=== PATIENT | female | born 1985 | race Caucasian/White ===

== ENCOUNTER → 2021-01-23 10:01 | Outpatient (BNVA) | payer MEDICAID, SELFPAY | PROVIDERS: Visit Provider Obstetrics & Gynecology | DX: N93.9 Abnormal uterine and vaginal bleeding, unspecified (principal) | CPT/HCPCS: 84443; 87635 ==

== ENCOUNTER 2021-01-28 15:43 | Observation (INO) | payer MEDICAID, SELFPAY ==
[2021-01-26 11:19] LABS: Add Urine Microscopic? NO; Charge for UA Resulting for Rev
[2021-01-26 11:27] LABS: Bilirubin Urine Neg (Negative); Blood Urine Neg (Negative); Glucose Urine UA Norm (Normal); Ketones Urine Negative (Negative); Leukocyte Esterase Urine Negative (Negative); Nitrate Urine Negative (Negative); Protein Urine Neg (Negative); Urine Appearance Clear (CLEAR); Urine Color Yellow (Yellow); Urobilinogen Urine Norm (Negative); pH Urine 5 (5-7)
[2021-01-26 11:30] LABS: OR HCG Qualitative Urine Negative (Negative)
[2021-01-26 11:32] VITALS: BMI 27.2
[2021-01-26 11:44] LABS: Basophils % 0.5 %; Eosinophils # 0.2 10^3/uL (0.0-0.8); Eosinophils % 2.7 %; Hematocrit 40.6 % (37.0-47.0); Hemoglobin 13.5 g/dL (11.5-15.3); Lymphocytes # 2.6 10^3/uL (0.8-4.8); Lymphocytes % 40.5 %; Mean Corpuscular HGB Conc 33.3 g/dL (30.0-36.0); Mean Corpuscular Hemoglobin 29.3 pg (28.0-34.0); Mean Corpuscular Volume 88.1 fl (81-99); Mean Platelet Volume 10.5 fL (7.4-10.4); Monocytes # 0.4 10^3/uL (0.2-0.9); Monocytes % 6.7 %; Neutrophils # 3.11 10^3/uL (1.8-7.7); Neutrophils % 49.4 %; Nucleated Red Blood Cells % 0 %; Platelet Count 228 10^3/cmm (130-400); Red Blood Count 4.61 10^6/uL (4.1-5.3); Red Cell Distribution Width 12.8 % (12.1-15.1); White Blood Count 6.3 10^3/uL (4.0-10.0)
[2021-01-26 12:11] LABS: Alanine Aminotransferase 64 U/L (0-33); Albumin Level 4.1 g/dL (3.5-5.2); Alkaline Phosphatase 94 IU/L (35-105); Anion Gap 12.6 (5-19); Aspartate Amino Transferase 39 U/L (0-32); Blood Urea Nitrogen 6 mg/dL (6-20); Calcium 9.3 mg/dL (8.5-10.5); Carbon Dioxide 23 mmol/L (22-29); Chloride 106 mmol/L (98-107); Globulin 3.5 g/dL (1.3-4.6); Glomerular Filtration Rate 140.4 mL/min (90-130); Glucose 69 mg/dL (65-115); Osmolality Calculated 282 mOsm/kg (285-295); Potassium 3.6 mmol/L (3.5-5.1); Sodium 138 mmol/L (136-145); Total Bilirubin 0.5 mg/dL (0.15-1.2); Total Protein 7.6 g/dL (6.6-8.7)
--- NOTE | 2021-01-26 12:43 | P.ANESASSM_ITS ---
Pre-Anesthetic Assessment Pre-Anesthetic Assessment: Height/Weight: Height 1.78 m Weight 86.183 kg Proposed Procedure: Operation Date: 01/28/21 13:15 Proposed Procedures p Laparoscopic Assist Vaginal Hysterectomy 92983 N93.9(Not Applicable) - Octavio Anderson MD Was Beta Sanchez taken within 24 hours: N/A Was Clonidine taken within 24 hours: N/A Social: Social History: Tobacco and No alcohol Exam: Pre-Anes Outpt Exam: alert, oriented x 3 and regular rate & rhythm Airway: Submandibular: WNL Cervical ROM: WNL MP: 2 Dentition: Chipped Pulmonary: Pulmonary: COPD Anesthetic Plan: ASA status: 2 Anesthesia: General Risk of > 500 ml blood loss (7ml/kg in children): No PFSH Anesthesia PFSH: Medical History (Updated 12/25/20 @ 15:15 by Octavio Anderson MD) Abnormal uterine bleeding (AUB) Surgical History (Updated 12/25/20 @ 15:14 by Octavio Anderson MD) History of appendectomy 2011 History of section 2014 History of cone biopsy of cervix 2016 History of tonsillectomy 1992 Family History (Updated 12/22/20 @ 13:04 by Alicia Nicholas LPN) Grandmother Diabetes maternal Grandfather Diabetes maernal Mother Thyroid disease Ovarian cancer Colon cancer Uterine cancer Denies family history of Clotting disorder Hyperlipidemia Breast cancer Bleeding disorder Hypertension Stroke Social History (Updated 12/22/20 @ 13:05 by Alicia Nicholas LPN) Smoking and tobacco status: current every day smoker cigarettes Packs smoked per day: 0.5 Alcohol intake: current Alcohol intake frequency: holidays/special occasions only Alcohol type: hard liquor Female Reproductive History: Date of last menstrual period: 01/08/21 Data Anesthesia CBC & Chem 7: 01/26/21 11:20 01/26/21 11:20 Other Labs: Laboratory Results - last 48 hr 01/26/21 01/26/21 01/26/21 11:10 11:10 11:20 WBC 6.3 RBC 4.61 Hgb 13.5 Hct 40.6 MCV 88.1 MCH 29.3 MCHC 33.3 RDW 12.8 Plt Count 228 MPV 10.5 H Neut % (Auto) 49.4 Lymph % (Auto) 40.5 [place] % (Auto) 6.7 Eos % (Auto) 2.7 Baso % (Auto) 0.5 Neut # (Auto) 3.11 Lymph # (Auto) 2.6 [place] # (Auto) 0.4 Eos # (Auto) 0.2 Baso # (Auto) 0.0 Nucleated RBC % (auto) 0 Nucleated RBCs # 0.0 Sodium Potassium Chloride Carbon Dioxide Anion Gap BUN Creatinine GFR Calculation Glucose Calculated Osmolality Calcium Total Bilirubin AST ALT Alkaline Phosphatase Total Protein Albumin Globulin Urine Color Yellow Urine Appearance Clear Urine pH 5 Ur Specific [place] 1.020 Urine Protein Neg Urine Glucose (UA) Norm Urine Ketones Negative Urine Blood Neg Urine Nitrate Negative Urine Bilirubin Neg Urine Urobilinogen Norm Ur Leukocyte Esterase Negative Urine HCG, Qual Negative Blood Type Rho(D) Type Antibody Screen 01/26/21 01/26/21 11:20 11:20 WBC RBC Hgb Hct MCV MCH MCHC RDW Plt Count MPV Neut % (Auto) Lymph % (Auto) [place] % (Auto) Eos % (Auto) Baso % (Auto) Neut # (Auto) Lymph # (Auto) [place] # (Auto) Eos # (Auto) Baso # (Auto) Nucleated RBC % (auto) Nucleated RBCs # Sodium 138 Potassium 3.6 Chloride 106 Carbon Dioxide 23 Anion Gap 12.6 BUN 6 Creatinine 0.5 GFR Calculation 140.4 H Glucose 69 Calculated Osmolality 282 L Calcium 9.3 Total Bilirubin 0.5 AST 39 H ALT 64 H Alkaline Phosphatase 94 Total Protein 7.6 Albumin 4.1 Globulin 3.5 Urine Color Urine Appearance Urine pH Ur Specific [place] Urine Protein Urine Glucose (UA) Urine Ketones Urine Blood Urine Nitrate Urine Bilirubin Urine Urobilinogen Ur Leukocyte Esterase Urine HCG, Qual Blood Type A Positive Rho(D) Type Positive Antibody Screen Negative Cardiac Studies: No Data to Display
[2021-01-28] VITALS (15 sets, daily range): BP systolic 106–134; BP diastolic 58–81; PULSE 50–77; RESP 12–22; TEMP 36.2–37.2; O2SAT 97–100
[2021-01-28] MEDS: scopolamine 1.5 Patch 1 PATCH TRANSDERMA (11:57)
[2021-01-28] MEDS: sodium chloride 0.9% 500 ML IV (12:15)
--- NOTE | 2021-01-28 13:29 | W.PM.OPSUD ---
Surgery/Procedure H&P Update DATE OF PROCEDURE: January 28, 2021 DATE H&P PERFORMED: 01/26/21 H&P UPDATE INFORMATION: I have reviewed H&P completed within last 30 days, I have examined patient prior to procedure and No changes to prior documentation PREOP DIAGNOSIS: Abnormal uterine bleeding unresponsive to medical management PLANNED PROCEDURE: Operation Date: 01/28/21 13:05 Proposed Procedures p Laparoscopic Assist Vaginal Hysterectomy 73507 N93.9(Not Applicable) - Octavio Anderson MD
[2021-01-28] MEDS: ceFOXitin 2,000 MG in sodium chloride 0.9% (plus) 50 ML 100 MG IV (13:48)
--- NOTE | 2021-01-28 15:43 | P.OP_ITS ---
Operative Report Date of procedure: January 28, 2021 Pre-op Diagnosis: Abnormal uterine bleeding unresponsive to medical management Post-op diagnosis: same Post-op Diagnosis: omental adhesions. Post-op Findings: Enlarged uterus, omental adhesions Procedure Done: Laparoscopic-assisted vaginal hysterectomy Specimens removed/disposition: Uterus, left and right fallopian tube Pathology: Uterus, left and right fallopian tube Surgeon: Octavio Anderson MD Anesthesia: General Estimated blood loss (mL): 250 IV fluids (mL): 700 Urine output (mL): 600 Complications: none Condition: stable Disposition: PACU Procedure: After informed consent, the patient was taken to the operating room where general anesthesia was administered. Pre-Procedure Time-Out verifying the correct patient identity, correct procedure verified with consent, correct site and side, correct patient position, availability of correct implants and any special equipment or requirements was performed and acknowledge by the OR team. She was placed in the dorsal lithotomy position and prepped and draped in sterile fashion. The patient was examined under anesthesia and found to have a normal uterus with normal adnexa. A Mayfield catheter was placed in the bladder. A weighted speculum was placed in the vagina, and the anterior lip of cervix was grasped with the single toothed tenaculum. A uterine manipulator was advanced into the endocervical. Tenaculum was removed after uterine manipulator was secured. The speculum was removed from the vagina. The attention was brought to abdomen after changing gloves. The base of the umbilicus was grasped with an Allis clamp and with 2 towel clamp bilaterally tenting up the umbilicus an intraumbilical incision was made with a scalpel. While tenting up on the abdomen, a Verres needle with sleeve was admitted into the intra-abdominal cavity. A saline drop test was performed and noted to be within normal limits. Pneumoperitoneum was attained with 4 liters of carbon dioxide. The Verres needle was removed. Then a 5 mm Optiview trocar and cannula were inserted under direct visualization without complications. Trocars were removed and the laparoscope was inserted and connected to the video camera light source. A 5 mm trocar and cannula were placed 3 cm above pubic bone at mid-line under direct visualization after infiltration of 2% lidocaine with epinephrine. Abdominal survey showed omental adhesions to the anterior abdominal wall. The pelvic contents were visualized and noted an enlarged irregular uterus, deep cul-de-sac, normal bi lateral fallopian tubes and ovaries, normal appendix, and both ureters were identified crossing the pelvic brim and pelvic sidewall. The left round ligament was clampped sealed/coagulated and transected using Voyant device. The left mesosalpinx ligament was clamped selaed/coagulated using LigaSure and then transected. The left broad ligament was opened down to the level of the uterine artery and vein. The right mesosalpinx ligamnet was clamped sealed/coagulated and transected using Voyant device. The right round ligament was clamped sealed/coagulated and transected using Voyant device, and the right broad ligament was opened down to the level of the right uterine artery and vein. Peritoneum of the lower uterine segment was entered using Voyant device, and the bladder was dissected off the lower uterine segment using blunt dissection. Careful inspection revealed complete hemostasis. A BookWalter vaginal retractor was placed in the vaginal to visualize the cervix. The cervix was grasped across the anterior lip with a single-toothed tenaculum and circumferentially infiltrated with 2% lidocaine with epinephrine at this time. The cervix was circumferentially excised with the scalpel. The vaginal mucosa was dissected superiorly with sharp dissection. The anterior peritoneal reflection was identified, and it was entered with Metzenbaum scissors. A posterior colpotomy was made through the cul-de-sac space. The posterior peritoneum was identified in similar fashion and Metzenbaum scissors were used to enter the cul-de-sac. At this time, the posterior retractor blade was placed, and advanced posteriorly into the cul-de-sac. At this time, the left and right uterosacral ligaments were isolated and ligated with 0 Vicryl. The Enseal device was then used in a serial fashion up through the cardinal ligaments bilaterally. Finally, the uterine arteries were cross-clamped, sealed,and cut, with the Enseal device. Enseal device was then used up through the broad ligaments superiorly and finally the uterus was rotated posteriorly. The uterus was excised and submitted for pathologic evaluation. The pedicles were doubly ligated bilaterally with 0 Vicryl and hemostasis noted to be achieved. No other abnormalities were noted in the pelvic cavity. At this time, instruments were removed from the patient's abdominopelvic cavity. Vaginal cuff closure and peritoneum were incorporated into one layer with 0 Vicryl suture in a continuous running interlocking fashion. Hemostasis was noted to be achieved. Mayfield catheter was seen yielding clear jillian urine. The patietn was given methyline blue IV. Then attention was again turned back to the abdomen and inspected the abdomen to ensure complete hemostasis. Then the omental adhesions to the anterior abdominal wall there lysed with the Voyant device. Once the entire abdomen was inspected and hemostasis was assure then the ports were then removed under direct visualization being sure to note hemostasis of the port sites on removal. The incisions were then closed with interrupted 3-O VIcryl sutures and Dermabond adhesive. The patient tolerated the procedure well and was taken to the recovery room in a stable condition. Sponge and needle counts were correct x3.
--- NOTE | 2021-01-28 15:59 | P.PCN_ITS ---
PACU note PACU note: VSS, Good respiratory effort, report to GELATIN PLANT SUPERVISOR Post-Anesthesia Exam: awake
--- NOTE | 2021-01-28 15:59 | PM.PACU ---
PACU note PACU note: VSS, Good respiratory effort, report to BURNER MACHINE OPERATOR Post-Anesthesia Exam: awake
--- NOTE | 2021-01-28 16:01 | ANE.PACU2 ---
Inpatient post-anesthesia follow up: Airway intact: Yes Vital signs: Temperature 98.6 F Pulse Rate 77 Respiratory Rate 16 Blood Pressure 124/81 Pulse Oximetry 98 Oxygen Delivery Me thod Room Air Oxygen Flow Rate Fraction of Inspir ed Oxygen Hydration adequate: Yes Nausea and vomiting: No Pain level: 3 Mental status: Baseline
[2021-01-28] MEDS: fentaNYL 50 mcg/mL INJ 2mL IVP ×2 (16:06→16:11)
[2021-01-28] MEDS: HYDROcodone-acetaminophen 5-325 mg Tablet PO ×2 (17:01→22:52)
[2021-01-28] MEDS: HYDROmorphone 1 mg/mL INJ 1 mL 0.5 MG IVP (17:10)
[2021-01-28] MEDS: dextrose 5%-lactated ringers 1,000 ML 125 ML IV (17:15)
[2021-01-28] MEDS: simethicone 80 mg Chew PO (19:29)
[2021-01-28] MEDS: HYDROmorphone 1 mg/mL INJ 1 mL IVP ×2 (19:29→23:36)
[2021-01-28] MEDS: ketorolac 30 mg/mL INJ IVP (22:52)
[2021-01-28] MEDS: zolpidem 5 mg Tablet PO (23:36)
[2021-01-29] MEDS: dextrose 5%-lactated ringers 1,000 ML 125 ML IV (01:37)
[2021-01-29 04:08] VITALS: RESP 16
[2021-01-29] MEDS: HYDROmorphone 1 mg/mL INJ 1 mL IVP (04:08)
[2021-01-29] MEDS: simethicone 80 mg Chew PO (04:08)
[2021-01-29 04:13] VITALS: BP 114/65; PULSE 80; RESP 16; O2SAT 97
--- NOTE | 2021-01-29 05:11 | PC.NURSE ---
This nurse has encouraged pt to move to chair or ambulate all shift. Pt has refused every time stating I am in too much pain to move. This nurse educated pt on benefits of moving around and possibility of passing gas which could help alleviate some of the pain. Pt still refused.
[2021-01-29 05:31] LABS: Hematocrit 33.6 % (37.0-47.0); Hemoglobin 11.4 g/dL (11.5-15.3); Mean Corpuscular HGB Conc 33.9 g/dL (30.0-36.0); Mean Corpuscular Hemoglobin 29.5 pg (28.0-34.0); Mean Corpuscular Volume 86.8 fl (81-99); Mean Platelet Volume 10.6 fL (7.4-10.4); Platelet Count 232 10^3/cmm (130-400); Red Blood Count 3.87 10^6/uL (4.1-5.3); Red Cell Distribution Width 12.5 % (12.1-15.1); White Blood Count 10.4 10^3/uL (4.0-10.0)
[2021-01-29] MEDS: ketorolac 30 mg/mL INJ IVP (07:17)
[2021-01-29] MEDS: HYDROcodone-acetaminophen 5-325 mg Tablet PO (07:18)
[2021-01-29] MEDS: docusate sodium 100 mg Capsule PO (07:19)
--- NOTE | 2021-01-29 08:48 | P.DS_ITS ---
Discharge Providers SCIENTIFIC INFORMATICS LEADER Date of Admission: 01/28/21 15:43 Date of Discharge: 01/29/21 Attending Provider at Admission: Octavio Anderson MD Attending Provider at Discharge: Octavio Anderson MD Diagnoses at Discharge Discharge Diagnosis (1) Abnormal uterine bleeding (AUB): Status: Acute (2) Status post laparoscopic assisted vaginal hysterectomy (LAVH): Status: Acute Reason for Visit Reason for Visit: lap assisted vaginal hysterectomy Hospital Course Hospital Course This is a well was admitted for planned laparoscopic-assisted vaginal hysterectomy. Omental abdominal adhesions were noted during abdominal pelvic survey. The laparoscopic-assisted vaginal hysterectomy was performed without c omplications. Lysis of adhesions were performed without complications. Overnight observation uneventful. Part of the diet well. Ambulating without difficulty. Patient expected to be 100% pain-free she was counseled. Physical Exam Narrative: EXAM NARRATIVE: GA: Alert and oriented ?3. HEENT: WNL. Heart: Regular rate and rhythm. Lungs: Clear to auscultation bilaterally. Abdomen: Bowel sounds present, nontender, minimal tenderness, incision clean and dry, no redness, pain or edema. SECURITY AND COMPLIANCE ANALYST: No bleeding. Extremities: No edema, no cyanosis, no calves pain. Urinary Catheter Management^: F: Cath Placed During This Visit: yes, but has since been removed by the nurse Reason for Continuing Indwelling Catheter: Decision to DC Catheter Urinary Catheter Date of Insertion: 01/28/21 Urinary Catheter Time of Insertion: 13:55 Date Urinary Catheter Removed: 01/29/21 Time Urinary Catheter Discontinued: 05:12 Discharge Data Data Completed and Pending: Pending at discharge Category Date Time Status ES surgery / GI i mages Routine Exams 01/28/21 06:54 Taken Pathology: Surgic al [PTH] Routine Pth 01/28/21 16:00 Ordered Labs from last 24 hours 01/29/21 05:10 WBC 10.4 H RBC 3.87 L Hgb 11.4 L Hct 33.6 L MCV 86.8 MCH 29.5 MCHC 33.9 RDW 12.5 Plt Count 232 MPV 10.6 H Vitals: Last Vital Signs Temp 98.9 F 01/28/21 18:20 Pulse 80 01/29/21 04:13 Resp 16 01/29/21 04:13 BP 114/65 01/29/21 04:13 Pulse Ox 97 01/29/21 04:13 Discharge Plan Discharge Patient Disposition: Home Condition: Stable Prescriptions: New ibuprofen 800 mg tablet 800 mg PO TID PRN (Reason: pain) Qty: 60 RF: 0 hydrocodone-acetaminophen 5-325 mg tablet 1 tab PO Q4H PRN (Reason: pain) Qty: 30 RF: 0 Iron (ferrous sulfate) 325 mg (65 mg iron) tablet 325 mg PO BID Qty: 30 RF: 0 Colace 100 mg capsule 100 mg PO BID Qty: 60 RF: 0 acetaminophen 325 mg capsule 325 mg PO Q4H PRN (Reason: fever or pain) Qty: 60 RF: 0 Continued No Known Home Medications RF: 0 Discharge Orders: Discharge Order (Routine); Ordered 01/29/21 Ordered By: Octavio Anderson Discharge Diet: Usual diet Discharge Activity: Increase activity as tolerated Patient Instructions: Laparoscopically Assisted Vaginal Hysterectomy (DC), OB Discharge Report, OB Laproscopic Surgery - [facility], OB Food/Drug Interaction Guide, Opioid Safety Activity Restrictions/Additional Instructions: 1. Please call [facility] on next working day to make your post-operative appointment in 2 weeks. 2. Please stay home until you come back to the clinic on first post-operative check up. 3. Please follow instructions on your medications CAREFULLY. 4. If you have abdominal incision, do not cover it unless dressing is necessary because of drainage. OK to shower, but avoid bath. Leave steri-strips until they fall off. If they are still on one week after surgery, you may remove them. 5. If you had vaginal surgery or vaginal repair, Dr. Anderson may instruct you to take SITZ bath. 6. Yellow, blood tinged odorous vaginal discharge is usually normal after hysterectomy or vaginal surgeries. 7. No sexual intercourse, tampons, or douches until you are completely released from the post-operative care. 8. Avoid constipation by eating right and maybe using some Metamucil or Milk of Magnesia. 9. All prescription refills are given during the working hours. Please do no wait till it runs out. Call the clinic at [phone] before your medication runs out. The clinic will get in touch with your doctor to prescribe medications if necessary. 10. Please remain within 40 mile radius from our hospital because emergencies do happen now and then during the post-operative period. 11. If you have stairs at home, take one step at a time slowly and minimize the number of trips. It helps to stay in one floor for the next few days. No lifting except what you can lift by one hand until you are released from the post-operative care. 12. Driving is discouraged until you are well healed. It may be 3-4 weeks before you feel strong enough to drive. You should be able to turn and look through the rear window without pain and you should be able to push the brake pedal very hard without pain before you drive. No fast rules, but SAFETY should be your primary concern. DO NOT drive if you are on sedating medications such as narcotics. 13. Call the clinic (during working hours) to make urgent appointment or go to the Emergency room, if any of the following occurs: i. Vaginal bleeding becomes heavy, more than a period. ii. Incision becomes red and sore, or drains pus. iii. Your temperature is over 100.4 or you have chill. iv. IV site becomes red and swollen (a little ``knot?? is usually OK) v. Persistent nausea and vomiting vi. Persistent constipation or diarrhea vii. Rash or allergic reaction to medications. Discharge Attestations SCIENTIFIC INFORMATICS LEADER Time Spent in Discharge Care*: greater than 30 min Coding Level of Care Code Acute Pension Examiner for nadya Hope Diagnoses Abnormal uterine bleeding (AUB) N93.9 Status post laparoscopic assisted vaginal hysterectomy (LAVH) Z90.710
[2021-01-29 10:35] VITALS: BP 119/75; PULSE 90; RESP 16; TEMP 36.4
--- NOTE | 2021-01-30 15:33 | PC.RESP ---
SMOKING CESSATION INFORMATION SENT TO PATIENT.
== END 2021-01-29 11:38 | disposition home or self-care (01) ==
LOC: OBGYN 15:48
PROVIDERS: Admitting Provider Obstetrics & Gynecology; Visit Provider Obstetrics & Gynecology
PROC: 0UT9FZZ Resection of Uterus, Via Natural or Artificial Opening With Percutaneous Endoscopic Assistance (ICD-10-PCS; CPT 58552; principal; 2021-01-28 12:55)
DX: N93.9 Abnormal uterine and vaginal bleeding, unspecified (principal); K66.0 Peritoneal adhesions (postprocedural) (postinfection); J44.9 Chronic obstructive pulmonary disease, unspecified; F17.210 Nicotine dependence, cigarettes, uncomplicated; Z83.3 Family history of diabetes mellitus; Z80.41 Family history of malignant neoplasm of ovary
CPT/HCPCS: 58552; 36415; 80053; 81003; 84703; 85025; 85027; 86850; 86900; 88307; G0378; J0694; J1100; J1170; J1885; J2250; J2405; J2704; J2710; J3010; J3490; J7040; Q9968

== ENCOUNTER 2022-09-06 09:52 | Outpatient (CLI) | payer BC, MEDICAID, SELFPAY ==
--- NOTE | 2022-09-06 10:04 | MM_ITS ---
WS: [id number] DIAGNOSTIC BILATERAL DIGITAL BREAST TOMOSYNTHESIS MAMMOGRAPHY WITH CAD Bilateral breast ultrasound, limited. HISTORY: N63.0 - Unspecified lump in unspecified breast, bilateral breast palpable masses. COMPARISON: None available. TECHNIQUE: Bilateral craniocaudad, mediolateral oblique, and mediolateral views are submitted with to mosynthesis and SM. Spot compression views bilateral craniocaudad. Computer aided detection utilized. Breast composition: The breasts are heterogeneously dense, which may obscure small masses. Palpable m arkers are placed in the upper outer quadrant of each breast. No underlying mass or distortion is lv ntified. No calcifications. Normal appearance of each breast. Bilateral breast ultrasound, limited. RIGHT: Very dense fibroglandular tissue upper-outer quadrant in the site of the palpable abnormality. LEFT: Very dense fibroglandular tissue upper outer quadrant in the site of the palpable abnormality. MM/[place] [id number] IMPRESSION: BI-RADS: 2-Benign FOLLOW UP: 1 Year Follow-up
== END 2022-09-06 09:53 | disposition home or self-care (01) ==
PROVIDERS: PCP Family Medicine; Visit Provider Obstetrics & Gynecology
DX: N63.0 Unspecified lump in unspecified breast (principal); R92.2 Inconclusive mammogram
CPT/HCPCS: 76642; 77062; G0279